=== PATIENT | male | born 1970 | race Caucasian/White ===

== ENCOUNTER → 2017-01-19 | Outpatient (CLI) | payer BC ==
[~2017-01-19] MED LIST: AMBIEN10 MG PO; IBUPROFEN800 MG PO
[2017-01-19 10:38] LABS: BASOPHIL% 0.5 % (0-2.5); EOSINOPHIL# 0.1 X10e3 (0-0.7); EOSINOPHIL% 1.8 % (0.0-7.0); HEMATOCRIT 50.6 % (38.0-50.0); HEMOGLOBIN 17.4 gm/dL (13.0-16.0); LYMPHOCYTE% 15.6 % (17.0-45.0); MEAN CELL VOLUME 94.9 FL (83-96); MEAN CORPUSCULAR HEMOGLOBIN 32.6 PG (28-34); MEAN CORPUSCULAR HGB CONC 34.4 g/dL (30-36); MEAN PLATELET VOLUME 8.1 FL (6.5-11.5); MONOCYTE# 0.5 X10e3 (0-1.0); MONOCYTE% 8.8 % (3.0-12.0); NEUTROPHIL# 4.5 X10e3 (1.5-7.1); NEUTROPHIL% 73.3 % (40-75); PLATELET COUNT 166 X10e3 (140-420); RED BLOOD COUNT 5.34 X10e (3.90-5.60); RED CELL DISTRIBUTION WIDTH 13.2 % (11.0-15.5); WHITE BLOOD COUNT 6.1 X10e3 (4.0-10.5)
[2017-01-19 10:40] LABS: DIFF IND NO
[2017-01-19 11:20] LABS: ALBUMIN SERUM 4.1 g/dL (3.5-5.0); BILIRUBIN,TOTAL 2.3 mg/dL (0.2-2.0); BUN/CREATININE RATIO 12.72; CREATININE SERUM 1.1 mg/dL (0.6-1.4); GLOM FILT RATE Estimated 80.7 mL/min (>60); POTASSIUM 4.1 mmol/L (3.5-5.1); PROTEIN TOTAL SERUM 7.1 g/dL (6.0-8.3)
[2017-01-21 00:05] LABS: PSA, FREE 0.21 ng/mL (())
== END | disposition home or self-care (01) ==
LOC: CLAB 09:53
PROVIDERS: Family Medicine
DX: Z12.5 Encounter for screening for malignant neoplasm of prostate (principal); Z00.01 Encounter for general adult medical examination with abnormal findings; E78.2 Mixed hyperlipidemia; F51.01 Primary insomnia
CPT/HCPCS: 80053; 80061; 84153; 84154; 84443; 85025

== ENCOUNTER → 2017-01-19 | Day surgery (SDC) | payer OTHER ==
--- NOTE | ~2017-01-19 | EKG ---
PATIENT: EVA DIGGS UNIT #: [id number] Ventricular Rate: 68 BPM Atrial Rate: 68 BPM P-R Interval: 214 ms QRS Duration: 96 ms Q-T Interval: 382 ms QTC Calculation(Bezet): 406 ms P Charlton: 40 degrees Calculated R Charlton: -17 degrees Calculated T Charlton: 9 degrees Diagnosis Line: Sinus rhythm with 1st degree A-V block Diagnosis Line: Otherwise normal ECG Diagnosis Line: No previous ECGs available Diagnosis Line: Confirmed by GARRICK BETANCUR MD ([id number]) on 01/19/2017 Diagnosis Line: 11:35:44 PM INTERPRETING MD: GYPSY MANZO
--- NOTE | ~2017-01-19 | OR ---
Unit #: [id number] #: [id number] Patient: PADDY DIGGS [id number] [address] [place], [place] [address] [id number] MR#: [id number] NAME: PADDY DIGGS ROOM: Date of Procedure: 01/19/2017 Admission Date: 01/19/2017 Surgeon: David Perez M.D. : 1970 Attending Physician: David Perez M.D. Primary Care Physician: Berry Gonzales M.D. OPERATIVE REPORT PREOPERATIVE DIAGNOSIS Right pectoralis major tendon tear. POSTOPERATIVE DIAGNOSIS Right pectoralis major tendon tear. PROCEDURE PERFORMED Open repair of right pectoralis major tendon, [address]. BILLET SHEARER Yulissa Dwyer CFA. ANESTHESIA General endotracheal. COMPLICATIONS None. SPECIMENS None. DRAINS None. SURGICAL IMPLANTS Single 5.5 mm PEEK triple loaded suture anchor. INDICATIONS FOR PROCEDURE Paddy is a 46-year-old male, who was bench pressing, when he was doing essentially a negative rep and felt his pectoralis major tendon tear. This occurred approximately 3 weeks ago. 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 He subsequently has flown home. He was seen in the office yesterday and set up for surgery today. Risks, benefits, and alternatives were discussed with the patient. Informed consent was obtained. Risks include, but not limited to, infection, bleeding, nerve injury, blood clots, risks associated with anesthesia, need for further surgery, and possibly . DESCRIPTION OF PROCEDURE On 01/19/2017, the patient was seen in the preoperative holding area, where his surgical site was marked. Preoperative antibiotics were received. H and P and consent updated. He was taken to the operating Unit #: [id number] #: [id number] Patient: PADDY DIGGS room and provided general anesthesia. He was placed in beach chair position. Right upper extremity and shoulder prepped and draped in typical sterile fashion. Time-out was performed confirming the correct surgical site and procedure. The axillary incision was then made through the skin and subcutaneous tissues. A large defect noted with retraction of the pectoralis major muscle. There was a small portion of the clavicular head and sternal head still intact inserting on the humerus. The majority of the muscle tore at the myotendinous junction not leaving much of a tendon stump for repair. At this point, the insertion site was better delineated. Retractors were placed. This was just lateral to the biceps tendon that was identified. A bur was used to decorticate the bone to stimulate the healing response. A single 5.5 mm PEEK anchor was placed in standard fashion with excellent purchase. It had three sets of sutures on it. The first set was then whipstitched through the remaining tendon including the sternal head and clavicular head. There were intact. It was then whipstitched up through the muscle and torn portion of the tendon. A free suture had been passed through the tendon for mobilization purposes. There was extreme difficulty pulling the complete muscle all the way over to the insertion site. The arm was adducted and the sutures were tied down. The next set of sutures were passed in a locking Krackow stitch through the muscle and tendon that was torn. The other limb of the suture was passed once through the tendon and it was subsequently tied down. The third and final set was done in a similar fashion. This did pull the muscle back over to the myotendinous junction with the arm adducted. It did restore the normal anatomy in this region. The two sets of sutures were then tied to each other. The free suture was removed. At this point, the wound was thoroughly irrigated with normal saline. The interval was closed with 0 Vicryl suture followed by 2-0 Vicryl for subcutaneous tissues and a 3-0 Monocryl subcuticular skin stitch. Dermabond, Telfa, and Tegaderm were placed. The patient was placed into a sling immobilizer with the arm at his side with no abduction pillow. He was subsequently awakened from general anesthesia in stable condition and taken to PACU postoperatively. POSTOPERATIVE PLAN The patient will be discharged home. He will have absolutely no external rotation or abduction of the arm. He also initially remain in a sling for the first four weeks and then we will progress from there. No complications were encountered during this procedure. Dictated by... Elver Arreguin/yumiko TD: 01/20/2017 03:32 JOB #: [id number] Unit #: [id number] #: [id number] Patient: PADDY DIGGS OPERATIVE REPORT Page 1 of 1 X X PROCEDURE OPERATIVE NOTE
[2017-01-19 10:37] LABS: URINE APPEARANCE CLEAR; URINE BILIRUBIN NEG (NEG); URINE BLOOD TRACE (NEG); URINE COLOR DK YELLOW; URINE GLUCOSE NEG (NEG); URINE KETONE NEG (NEG); URINE LEUKOCYTE ESTERASE 1+ (NEG); URINE NITRATE NEG (NEG); URINE PH 6.5 (5-8); URINE PROTEIN NEG (NEG); URINE SPECIFIC GRAVITY 1.028 (1.003-1.035)
[2017-01-19 10:39] LABS: URINE BACTERIA AUWI NEG (NEGATIVE); URINE SQUAMOUS EPITHELIAL CELL NONE SEEN /[HPF]
== END | disposition home or self-care (01) ==
LOC: CSUR 09:46
PROVIDERS: Orthopaedic Surgery
DX: S29.011A Strain of muscle and tendon of front wall of thorax, initial encounter (principal); Z88.8 Allergy status to other drugs, medicaments and biological substances; Z98.52 Vasectomy status; Z98.890 Other specified postprocedural states
CPT/HCPCS: 81003; 93005; C1713; J0131; J0330; J0690; J1170; J1885; J2250; J2405; J2710; J3010

== ENCOUNTER → 2017-03-02 | Outpatient (CLI) | payer BC ==
[2017-03-02 11:01] LABS: ALBUMIN SERUM 4.6 g/dL (3.5-5.0); BILIRUBIN, DIRECT 0.2 mg/dL (0.0-0.2); BILIRUBIN,INDIRECT 1.3 mg/dL (0.0-0.9); BILIRUBIN,TOTAL 1.5 mg/dL (0.2-2.0); PROTEIN TOTAL SERUM 7.5 g/dL (6.0-8.3)
== END | disposition home or self-care (01) ==
LOC: CLAB 09:38
PROVIDERS: Family Medicine
DX: E78.2 Mixed hyperlipidemia (principal)
CPT/HCPCS: 36415; 80076